=== PATIENT | male | born 1955 | race Two or more races ===

== ENCOUNTER 2023-05-19 00:55 | Emergency (ER) | payer OTHER ==
[~2023-05-19] VITALS: Ht 172.7 cm; Wt 108.9 kg
[2023-05-19] MEDS ORDERED: PROMETHAZINE HCL 50 MG/ML AMPUL IM STA (02:02)
[2023-05-19] MEDS ORDERED: TAMSULOSIN HCL 0.4 MG CAP PO STA (02:03)
[2023-05-19] MEDS ORDERED: KETOROLAC TROMETHAMINE 30 MG VIAL IV STA (02:03)
[2023-05-19] MEDS ORDERED: SODIUM CHLORIDE 0.45 % 1,000 ML IV ONE (02:15)
[2023-05-19 02:44] LABS: URINE APPEARANCE Cloudy; URINE BILIRRUBIN Negative (NEGATIVE); URINE BLOOD Large; URINE COLOR Orange; URINE GLUCOSE Negative (NEGATIVE); URINE LEUKOCYTE Trace; URINE NITRATE Negative; URINE PROTEIN Trace (NEGATIVE)
[2023-05-19 02:45] LABS: HEMATOCRIT 42.2 % (39.0-48.0); HEMOGLOBIN 14.4 g/dL (13-16.00); MEAN CORPUSCULAR HEMOGLOBIN 30.7 pg (27.00-32.0); MEAN CORPUSCULAR HGB CONC 34.1 g/dl (32.0-36.0); PLATELET COUNT 245 K/uL (150-450); RED BLOOD COUNT 4.69 M/uL (4.00-6.00); RED CELL DISTRIBUTION WIDTH 14.2 % (11.5-14.5)
[2023-05-19 02:48] LABS: URINE BACTERIA 80.6 uL (0.0-1933); URINE RBC 9332.3 uL (0.0-20.8); URINE WBC 20.5 uL (0.0-23.2)
[2023-05-19 02:51] LABS: URINE EPITHELIAL CELLS 1.3 uL (0.0-38.8)
[2023-05-19 02:59] LABS: CALCIUM 9.3 mg/dL (8.5-10.1); CREATININE SERUM 1.32 mg/dL (0.70-1.30); GFR 53.94; POTASSIUM 3.84 mEq/L (3.5-5.1)
[2023-05-19] MEDS ORDERED: KETO10TA2 PO (06:27)
[2023-05-19] MEDS ORDERED: TAMS0.4C PO (06:27)
== END 2023-05-19 06:32 ==
LOC: ER
PROVIDERS: General Practice
DX: N20.0 Calculus of kidney (principal); R10.9 Unspecified abdominal pain; I10 Essential (primary) hypertension; E11.9 Type 2 diabetes mellitus without complications; Z79.84 Long term (current) use of oral hypoglycemic drugs
CPT/HCPCS: 36415; 74176; 96365; 96372; 99284; J1885; J2550